=== PATIENT | male | born 1960 | race Caucasian/White ===

== ENCOUNTER → 2023-12-08 14:07 | Outpatient (BNVA) | payer MEDICARE, SELFPAY | PROVIDERS: PCP Family Medicine; Visit Provider Family Medicine | DX: Z12.5 Encounter for screening for malignant neoplasm of prostate (principal); I10 Essential (primary) hypertension; E78.2 Mixed hyperlipidemia | CPT/HCPCS: 80053; 80061; G0103 ==

== ENCOUNTER → 2023-12-16 10:39 | Outpatient (BNVA) | payer MEDICARE, SELFPAY | PROVIDERS: PCP Family Medicine; Visit Provider Family Medicine | DX: E11.9 Type 2 diabetes mellitus without complications (principal) | CPT/HCPCS: 81000; 82962 ==

== ENCOUNTER → 2023-12-18 09:58 | Outpatient (BNVA) | payer MEDICARE, SELFPAY | PROVIDERS: PCP Family Medicine; Visit Provider Surgery | DX: Z12.11 Encounter for screening for malignant neoplasm of colon (principal) | CPT/HCPCS: 99024; 99204 ==

== ENCOUNTER → 2024-01-27 09:52 | Outpatient (BNVA) | payer MEDICARE, SELFPAY | PROVIDERS: PCP Family Medicine; Visit Provider Family Medicine | DX: E11.9 Type 2 diabetes mellitus without complications (principal); I10 Essential (primary) hypertension | CPT/HCPCS: 80053; 83036 ==

== ENCOUNTER 2024-03-17 07:21 | Day surgery (SDC) | payer MEDICARE, SELFPAY ==
[2024-03-17 07:34] VITALS: BP 138/93; PULSE 75; RESP 18; TEMP 36.2; O2SAT 97; BMI 31.3
--- NOTE | 2024-03-17 07:38 | W.PM.OPSFHP ---
Same Day Surgery H&P Indication for Procedure/HPI DATE OF PROCEDURE: March 17, 2024 CHIEF COMPLAINT/INDICATIONFOR SURGICAL PROCEDURE: need for screening colonoscopy PREOP DIAGNOSIS: need for screening colonoscopy PLANNED PROCEDURE: Operation Date: 03/17/24 08:25 Proposed Procedures p Colonoscopy -72918, Z12.11, G0105(Not Applicable) - Damian Titus MD Medications/Allergies* Home Medications Medication Instructions Recorded Confirmed Type aspirin 81 mg chewable tablet 81 mg PO DAILY 09/30/23 03/15/24 History Allergies/Adverse Reactions Allergy/AdvReac Type Severity Reaction Status Date / Time No Known Allergies Allergy Verified 01/27/24 09:31 Pertinent History/Comorbid Conditions* Medical History (Updated 12/16/23 @ 12:39 by Mesha Chacon MD) Hyperlipemia Surgical History (Updated 09/30/23 @ 14:37 by Mesha Chacon MD) History of testicular surgery History of nasal surgery Family History (Updated 12/18/23 @ 10:33 by Kimberly Yang MA) Colon cancer Brother Congestive heart failure (CHF) Father Atrial fibrillation Father Carotid artery disease Family/Other Social History Smoking and tobacco/nicotine status: former use of tobacco/nicotine Alcohol intake: current Alcohol intake frequency: 3 or more drinks per day Alcohol type: beer Pertinent Exam Findings alert, oriented x 3, clear to auscultation bilaterally and regular rate & rhythm Recommendations Surgery/Procedure today Coding Level of Care Code Acute Code for Chg Fwd
--- NOTE | 2024-03-17 07:42 | ANES.PREANE2 ---
Pre-Anesthetic Assessment Height/Weight: Height 1.7 m Weight 90.718 kg Temp Pulse Resp BP Pulse Ox O2 Del Method 97.2 F L 75 18 138/93 97 Room Air 03/17/24 07:34 03/17/24 07:34 03/17/24 07:34 03/17/24 07:34 03/17/24 07:34 03/17/24 07:34 Preop Diagnosis: need for screening colonoscopy Operation Date: 03/17/24 08:25 Proposed Procedures p Colonoscopy -36985, Z12.11, G0105(Not Applicable) - Damian Titus MD Familial anesthetic complications: None Was Beta Jessica taken within 24 hours: N/A Was Clonidine taken within 24 hours: N/A Last intake: Intake Last Liquid Date 03/16/24 Last Liquid Time 23:00 Last Solid Date 03/15/24 Last Solid Time 18:00 Social Alcohol (Occ.) and No tobacco (Quit 8 years ago) Exam alert, oriented x 3, clear to auscultation bilaterally and regular rate & rhythm Airway Submandibular: within normal limits Cervical ROM: within normal limits Mallampati: Class II Dentition: false (Upper dentures) History/ROS No significant history except as noted and No significant complaints Pulmonary Exertional Dyspnea and Sleep Apnea CV/HEM Hypertension None reported Hepatic None reported Metabolic Diabetes Mellitus and Hyperlipidemia [facility] Scoliosis Neuropsych Neuropathy Anesthetic Plan ASA status: 2 Anesthesia: Anesthesia Evaluation, General and MAC Risk of > 500 ml blood loss (7ml/kg in children): No Medications/Allergies Home Medications Medication Instructions Recorded Confirmed Last Taken Type aspirin 81 mg chewable tablet 81 mg PO DAILY 09/30/23 03/15/24 03/16/24 History alcohol swabs 1 pad topical TID PRN as needed to 12/16/23 03/15/24 Unknown Rx check blood sugar 30 days #100 ea blood-glucose meter (Blood Glucose #1 ea 12/16/23 03/15/24 Unknown Rx Monitoring kit) lancets #100 ea 12/16/23 03/15/24 Unknown Rx losartan 25 mg tablet 25 mg PO BID 90 days #180 tabs 01/27/24 03/15/24 03/16/24 Rx metformin 500 mg tablet,extended 500 mg PO DAILY 90 days #90 tabs 01/27/24 03/17/24 1 Week Ago Rx release 24 hr ~03/10/24 blood sugar diagnostic (Blood #50 ea 03/06/24 03/15/24 Unknown Rx Glucose Test strips) Allergies Allergy/AdvReac Type Severity Reaction Status Date / Time No Known Allergies Allergy Verified 01/27/24 09:31 [facility] Anesthesia Medical History Hyperlipemia Surgical History History of testicular surgery History of nasal surgery Family History (Updated 12/18/23 @ 10:33 by Kimberly Yang MA) Father Atrial fibrillation Congestive heart failure (CHF) Family/Other Carotid artery disease Brother Colon cancer Social History Smoking and tobacco/nicotine status: former use of tobacco/nicotine Alcohol intake: current Alcohol intake frequency: 3 or more drinks per day Alcohol type: beer Data Anesthesia Cardiac Studies: No Data to Display
[2024-03-17] MEDS: sodium chloride 0.9% 1,000 ML 30 ML IV (07:46)
[2024-03-17 07:49] LABS: Glucose Point of Care 116 mg/dL (70-110)
[2024-03-17 09:41] VITALS: BP 104/71; PULSE 73; RESP 12; TEMP 36.1; O2SAT 95
--- NOTE | 2024-03-17 09:42 | ECG_ITS ---
[facility] Test Date: 2024-03-17 Pat Name: Renny Jamison Department: Room: Gender: Male Internet Salesperson: : 1960 Requested By: Lisa Wallace Order Number: [id number] Cristian MD: Zuhair Butler M.D. Measurements Intervals Anderson Rate: 75 P: -50 WV: 211 QRS: -48 QRSD: 141 T: -14 QT: 428 QTc: 481 Interpretive Statements SINUS RHYTHM WITH FIRST DEGREE AV BLOCK WITH OCCASIONAL SUPRAVENTRICULAR PREMATURE COMPLEXES RIGHT BUNDLE BRANCH BLOCK [120+ ms QRS DURATION, UPRIGHT V1, 40+ ms S IN I/aVL/V4/V5/V6] LEFT ANTERIOR FASCICULAR BLOCK [QRS AXIS <= -45, QR IN I, RS IN II] MODERATE T-WAVE ABNORMALITY, CONSIDER LATERAL ISCHEMIA [-0.1+ mV T-WAVE IN I/aVL/V5/V6] No previous ECG available for comparison Electronically Signed On 03-17-2024 16:35:49 CDT by Zuhair Butler M.D. [email or web address]
[2024-03-17 09:46] VITALS: BP 112/73; PULSE 67; RESP 18; O2SAT 95
[2024-03-17 09:56] VITALS: BP 129/85; PULSE 66; RESP 18; O2SAT 97
--- NOTE | 2024-03-17 10:25 | ANE.PACU2 ---
Inpatient post-anesthesia follow up: Airway intact: Yes Vital signs: Temperature 97.0 F Pulse Rate 66 Respiratory Rate 18 Blood Pressure 129/85 Pulse Oximetry 97 Oxygen Delivery Me thod Room Air Oxygen Flow Rate Fraction of Inspir ed Oxygen Hydration adequate: Yes Nausea and vomiting: No Pain level: 1 Mental status: Baseline
== END 2024-03-17 10:26 | disposition home or self-care (01) ==
PROVIDERS: PCP Family Medicine; Visit Provider Surgery
PROC: 0DJD8ZZ Inspection of Lower Intestinal Tract, Via Natural or Artificial Opening Endoscopic (ICD-10-PCS; CPT 45378; principal; 2024-03-17 08:25)
DX: Z12.11 Encounter for screening for malignant neoplasm of colon (principal); K57.30 Diverticulosis of large intestine without perforation or abscess without bleeding; D12.5 Benign neoplasm of sigmoid colon; E78.5 Hyperlipidemia, unspecified; Z87.891 Personal history of nicotine dependence; G47.30 Sleep apnea, unspecified; I10 Essential (primary) hypertension; E11.40 Type 2 diabetes mellitus with diabetic neuropathy, unspecified; Z79.82 Long term (current) use of aspirin
CPT/HCPCS: 36416; 45385; 82962; 88305; 93005; J2371; J2704; J7030

== ENCOUNTER → 2024-03-30 14:36 | Outpatient (BNVA) | payer MEDICARE, SELFPAY | PROVIDERS: PCP Family Medicine; Visit Provider Surgery | DX: Z09 Encounter for follow-up examination after completed treatment for conditions other than malignant neoplasm (principal) | CPT/HCPCS: 99213 ==

== ENCOUNTER → 2024-04-04 09:38 | Outpatient (BNVA) | payer MEDICARE, SELFPAY | PROVIDERS: PCP Family Medicine; Visit Provider Nurse Practitioner Family | DX: M25.551 Pain in right hip (principal); W19.XXXA Unspecified fall, initial encounter; Y92.009 Unspecified place in unspecified non-institutional (private) residence as the place of occurrence of the external cause | CPT/HCPCS: 73502 ==

== ENCOUNTER → 2024-05-10 10:04 | Outpatient (BNVA) | payer MEDICARE, SELFPAY | PROVIDERS: PCP Family Medicine; Visit Provider Family Medicine | DX: E11.9 Type 2 diabetes mellitus without complications (principal) | CPT/HCPCS: 83036 ==

== ENCOUNTER 2024-08-01 07:34 | Outpatient (CLI) | payer MEDICARE, SELFPAY ==
--- NOTE | 2024-08-01 08:00 | CT_ITS ---
WS: [id number] LDCT LUNG CANCER SCREENING HISTORY: Z87.891 - Personal history of nicotine dependence TECHNIQUE: Axial imaging performed from the apices to 1 cm below the costophrenic angles. Coronal and sagittal reformats are submitted with axial MIP series. All CT scans at [facility] use at least one of these dose optimization techniques: automated exposure control; mA and/or kV adjustment per patient size (includes targeted exams where dose is matched to clinical indication); or iterative reconstruction. DLP: 117.91 mGy.cm DIvol: Mean CTDIvol: 2.50 (mGy) COMPARISON: None available. Diagnostic quality: Satisfactory Lungs: No pulmonary mass or nodule. No pneumonia. There is a tiny scar at the RIGHT lung base. No endobronchial lesions. Heart: Normal size heart with no pericardial effusion.. Other findings: Mild atherosclerosis aorta. Normal size pulmonary artery. No mediastinal or hilar adenopathy. Mild LEFT adrenal hyperplasia. Hypertrophic thoracic spine osteophytosis and disc space narrowing. CT/CT lung screening 92244 IMPRESSION: LUNG-RADS: 1-Negative FOLLOW UP: 12 Month: Continue annual screening with LDCT OTHER FINDINGS (S MODIFIER): None.
== END 2024-08-01 07:35 | disposition home or self-care (01) ==
PROVIDERS: PCP Family Medicine; Visit Provider Family Medicine
DX: Z12.2 Encounter for screening for malignant neoplasm of respiratory organs (principal); F17.210 Nicotine dependence, cigarettes, uncomplicated; I70.0 Atherosclerosis of aorta; E27.8 Other specified disorders of adrenal gland; M48.04 Spinal stenosis, thoracic region; R93.7 Abnormal findings on diagnostic imaging of other parts of musculoskeletal system
CPT/HCPCS: 71271

== ENCOUNTER → 2024-08-04 14:16 | Outpatient (BNVA) | payer MEDICARE, SELFPAY | PROVIDERS: PCP Family Medicine; Referring Provider Family Medicine; Visit Provider Internal Medicine Cardiovascular Disease | DX: R94.31 Abnormal electrocardiogram [ECG] [EKG] (principal); R06.02 Shortness of breath; I10 Essential (primary) hypertension; E78.2 Mixed hyperlipidemia; Z87.891 Personal history of nicotine dependence; E11.9 Type 2 diabetes mellitus without complications; Z79.84 Long term (current) use of oral hypoglycemic drugs | CPT/HCPCS: 99204 ==

== ENCOUNTER 2024-08-29 08:06 | Outpatient (CLI) | payer MEDICARE, SELFPAY ==
[2024-08-29 08:22] VITALS: BMI 33.0
--- NOTE | 2024-08-29 08:22 | ECG_ITS ---
[facility] Test Date: 2024-08-29 Pat Name: Renny Jamison Department: Room: Gender: Male Manager Immunology: : 1960 Requested By: Rylan Blankenship Order Number: [id number] Foster MD: Zuhair Butler M.D. Interpretive Statements EXERCISE MIBI : EXERCISE DATA: The patient was exercised by Sami protocol. Baseline heart rate was 77 beats per minute. Baseline blood pressure was 156/85 millimeters of mercury. Maximal predicted heart rate was 155 beats per minute. Maximum heart rate achieved was 139, which was 89% of the maximum predicted heart rate. Maximum blood pressure was 157/83 millimeters of mercury. Total exercise time was 7 minutes and 54 seconds. Maximum METs achieved was 9.4. The reason for ending the test was completion of protocol. The patient complained of shortness of breath during the stress test, which then resolved at the end of the test. ELECTROCARDIOGRAM: BASELINE: Showed sinus rhythm, incomplete right bundle branch block, PVCs no significant ST-T changes at the baseline noted. [] EXERCISE: At the peak exercise level, [] No significant ST-T changes suggestive of ischemia noted. [] RECOVERY: During the recovery period, heart rate dropped appropriately. No significant ST-T changes in the recovery suggestive of ischemia noted. [] CONCLUSION: 1. Exercise capacity is good. 2. Heart rate response was appropriate 3. Blood pressure response was appropriate 4. Symptoms not suggestive of ischemia. 5. Electrocardiogram portion of the stress test was not suggestive of ischemia. 6. Nuclear scan will be documented separately. Electronically Signed On 09-11-2024 02:18:42 CDT by Zuhair Butler M.D. [email or web address] [id number]
--- NOTE | 2024-08-29 08:23 | NMCV_ITS ---
NM jose perf SPECT r/s* [id number] [place] Age: 63 Gender: M : 1960 Exam Date: 08/29/2024 09:03 Ordering Phys: Rylan Blankenship MD ([email or web address]) Technologist: SHAY Crook Exam Location: [facility] Indications: cp STRESS TEST Please see separate stress test report in [facility] for full findings IMAGE PROTOCOL Rest/Stress 1 Exercise Day Radiopharmaceutical Dose (mCi) Administration Site Administered by Rest: Tc-99m 10.8 IV SHAY Crook Sestamibi Stress:Tc-99m 33 IV SHAY Camarena Sestamibi Rest: 29-Aug-2024 60 Discovery 630 Stress: 29-Aug-2024 15 Discovery 630 Radiopharmaceutical was injected at 86 % maximum heart rate. Images obtained in supine and prone position. SPECT RESULTS Technical Quality: Good Raw Data Analysis: Normal Image Corrections: No attenuation or motion correction applied Summed Stress Score: 2 Summed Rest Score: 8 Summed Difference Score: 0 PERFUSION FINDINGS FUNCTIONAL RESULTS (calculated via Gated SPECT) Stress Image LV EF (%): 62 Stress EDV (mL):90 TID: 0.82 Stress ESV (mL):34 FUNCTIONAL FINDINGS: Basal to distal inferior wall severe hypokinesis IMPRESSIONS Large area of fixed perfusion defect noted in basal to distal inferior wall on both stress and rest images suggestive of old myocardial infarction versus scarring. This study is negative for ischemia. Nubia Montano MD (Electronically Signed) Final Date: 30 August 2024 18:12 S
[2024-08-29 09:55] VITALS: BP 154/68; PULSE 97
--- NOTE | 2024-08-29 12:51 | USCV_ITS ---
YaquelinRenny harris Age: 63 Gender: M : 1960 Exam Date: 08/29/2024 13:32 Ordering Phys: Rylan Blankenship MD ([email or web address]) Technologist: Exam Location: [facility] Indication: cp afib BP: 132 / 80 HR: 91 Rhythm: Sinus Technical Quality: Adequate MEASUREMENTS (Male / Female) Normal Values 2D ECHO LV Diastolic Diameter PLAX 4.1 cm 4.2 - 5.9 / 3.9 - 5.3 cm IVS Diastolic Thickness 1.4 cm 0.6 - 1.0 / 0.6 - 0.9 cm IVS Systolic Thickness 1.5 cm LVPW Diastolic Thickness 1.3 cm 0.6 - 1.0 / 0.6 - 0.9 cm LVPW Systolic Thickness 1.6 cm LVOT Diameter 2.0 cm LV Ejection Fraction 2D Teich 62.1 % LV Ejection Fraction MOD 4C 63.6 % LV Ejection Fraction MOD 2C 63.1 % LV Ejection Fraction 2C AL 63.1 % LA Diameter 3.2 cm RA Systolic Volume 4C AL 92.5 ml RA Systolic Volume 4C MOD 87.3 ml Aorta at Sinotubular Diameter 3.4 cm IVC Diameter 1.8 cm M-MODE LA Ao Ratio MM 1.0 AV Cusp Separation MM 2.1 cm DOPPLER AV Peak Velocity 143.0 cm/s LVOT Peak Velocity 92.0 cm/s AV Area Cont Eq vti 2.6 cm squared AV Area Cont Eq pk 2.1 cm squared MV Peak Velocity 101.0 cm/s MV Area PHT 6.7 cm squared Mitral E to A Ratio 0.9 PV Peak Velocity 124.0 cm/s FINDINGS Left Ventricle Normal left ventricular size, systolic function and wall thickness, with no regional wall motion abnormalities. Left ventricular ejection fraction is estimated at 60%. Grade I/IV diastolic dysfunction (abnormal relaxation filling pattern), normal to mildly elevated filling pressures. Right Ventricle The right ventricle is normal in size and function. Right Atrium The right atrium is normal in size. Left Atrium The left atrium is normal in size. Mitral Valve Structurally normal mitral valve without significant stenosis or prolapse. There is no mitral regurgitation. Aortic Valve Structurally normal aortic valve without significant sclerosis or stenosis. There is no aortic regurgitation. Tricuspid Valve Structurally normal tricuspid valve without significant stenosis or regurgitation. Pulmonary artery systolic pressure is normal. Pulmonic Valve Structurally normal pulmonic valve without significant stenosis. There is no pulmonic regurgitation. Pericardium Normal pericardium without effusion. Aorta Normal ascending aorta dimension. IVC The inferior vena cava appears normal. CONCLUSIONS Normal left ventricular size, systolic function and wall thickness, with no regional wall motion abnormalities. Left ventricular ejection fraction is estimated at 60%. Grade I/IV diastolic dysfunction (abnormal relaxation filling pattern), normal to mildly elevated filling pressures. There is no pericardial effusion. No significant valve abnormalities. Right atrial pressure is around 5 mm of mercury. Nubia Montano MD (Electronically Signed) Final Date: 07 September 2024 17:58 S
== END 2024-08-29 08:07 | disposition home or self-care (01) ==
PROVIDERS: PCP Family Medicine; Visit Provider Internal Medicine Cardiovascular Disease
DX: R06.09 Other forms of dyspnea (principal); R93.1 Abnormal findings on diagnostic imaging of heart and coronary circulation
CPT/HCPCS: 36415; 78452; 93017; 93306; A9500

== ENCOUNTER → 2024-11-10 09:51 | Outpatient (BNVA) | payer MEDICARE, SELFPAY | PROVIDERS: PCP Family Medicine; Visit Provider Nurse Practitioner Family | DX: R06.02 Shortness of breath (principal); I10 Essential (primary) hypertension; E78.2 Mixed hyperlipidemia; E11.9 Type 2 diabetes mellitus without complications; Z79.84 Long term (current) use of oral hypoglycemic drugs; R94.31 Abnormal electrocardiogram [ECG] [EKG]; Z79.82 Long term (current) use of aspirin; Z87.891 Personal history of nicotine dependence | CPT/HCPCS: 99213 ==

== ENCOUNTER → 2024-12-06 10:24 | Outpatient (BNVA) | payer MEDICARE, MEDICAID, SELFPAY | PROVIDERS: PCP Family Medicine; Visit Provider Family Medicine | DX: Z12.5 Encounter for screening for malignant neoplasm of prostate (principal); I10 Essential (primary) hypertension; E11.9 Type 2 diabetes mellitus without complications; E78.2 Mixed hyperlipidemia | CPT/HCPCS: 80053; 80061; 83036; G0103 ==

== ENCOUNTER → 2025-06-19 09:27 | Outpatient (BNVA) | payer MEDICARE, MEDICAID, SELFPAY | PROVIDERS: PCP Family Medicine; Visit Provider Family Medicine | DX: I10 Essential (primary) hypertension (principal); E11.9 Type 2 diabetes mellitus without complications | CPT/HCPCS: 80053; 83036 ==